=== PATIENT | male | born 1965 | race Two or more races ===

== ENCOUNTER 2022-08-30 03:56 | Emergency (ER) | payer MEDICAID ==
[2022-08-30 07:24] LABS: CORONAVIRUS COVID-19 NAA POSITIVE (NEGATIVE)
== END 2022-08-30 08:15 | disposition home or self-care (01) ==
LOC: JD.ED 03:56
DX: U07.1 COVID-19 (principal); I10 Essential (primary) hypertension; Z86.16 Personal history of COVID-19; Z72.0 Tobacco use
CPT/HCPCS: 0240U; 36415; 71046; 80053; 83605; 83880; 84484; 85007; 85027; 85379; 87040; 93005; 99284; 93010; 99283

== ENCOUNTER 2022-09-28 03:13 | Emergency (ER) | payer MEDICAID | END 2022-09-28 04:36 | disposition home or self-care (01) | LOC: JD.ED 03:13 | DX: I10 Essential (primary) hypertension (principal); F17.210 Nicotine dependence, cigarettes, uncomplicated; Z79.899 Other long term (current) drug therapy; Z86.16 Personal history of COVID-19 | CPT/HCPCS: 99283 ==

== ENCOUNTER 2023-12-30 19:30 | Emergency (ER) | payer MEDICAID ==
[2023-12-30] MEDS: Pregabalin 75 MG Cap PO ONE (20:49)
== END 2023-12-30 21:06 | disposition home or self-care (01) ==
LOC: JD.ED 19:30
DX: G62.9 Polyneuropathy, unspecified (principal); M79.672 Pain in left foot; I10 Essential (primary) hypertension; E78.00 Pure hypercholesterolemia, unspecified; F17.210 Nicotine dependence, cigarettes, uncomplicated; Z79.899 Other long term (current) drug therapy
CPT/HCPCS: 99283; A9270-GY

== ENCOUNTER 2024-08-12 03:14 | Emergency (ER) | payer MEDICAID | END 2024-08-12 04:32 | disposition home or self-care (01) | LOC: JD.ED 03:14 | DX: I10 Essential (primary) hypertension (principal); E78.00 Pure hypercholesterolemia, unspecified; F17.210 Nicotine dependence, cigarettes, uncomplicated; Z79.899 Other long term (current) drug therapy | CPT/HCPCS: 99283 ==